=== PATIENT | male | born 1965 | race Caucasian/White ===

== ENCOUNTER 2017-05-19 13:19 | Emergency (ER) | payer OTHER ==
[~2017-05-19] VITALS: Ht 167.6 cm; Wt 97.5 kg
[2017-05-19] MEDS ORDERED: ACETAMINOPHEN 500 MG TABLET PO ONE (14:15)
[2017-05-19] MEDS ORDERED: BUPIVACAINE 0.5% 50 ML VIAL. INJ ONE (14:15)
[2017-05-19] MEDS ORDERED: DIPHTH,PERTUSS(ACELL),TET TOX 0.5 ML DISP.SYRIN. VAX IM ONE (14:15)
[2017-05-19] MEDS ORDERED: PIPERACILLIN/TAZOBACTAM 3.375 GM in IV NORMAL SALINE 50ML 50 ML IV ONE (14:30)
--- NOTE | 2017-05-19 14:37 | RAD ---
Indication: Laceration. Technique: 2 views of the left second digit including an AP view of the hand are submitted for review. No comparison is available. Findings: Soft tissue defect compatible with laceration is noted at the distal aspect of the second middle phalanx. No radiopaque foreign body is identified. An associated transverse fracture is suspected. There is no intra-articular extension. There is no dislocation. Impression: Acute traumatic transverse fracture of the distal aspect of the second middle phalanx.
[2017-05-19] MEDS ORDERED: CEPH500T PO (17:49)
[2017-05-19] MEDS ORDERED: HYDR-971 PO (17:49)
[2017-05-19 17:50] VITALS: BP 141/76
--- NOTE | 2017-05-19 17:50 | PHYS DOC ---
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 Patient is an inmate. He states he was weighing a 600 pound cow and his left index finger got caught between a pipe a scale. He is left handed Review of Systems Review of Systems Constitutional: Denies fever or chills [] Musculoskeletal: Denies back pain or joint pain [] Integument: left index finger laceration Neurologic: Denies headache, focal weakness or sensory changes [] Current Medications Current Medications Current Medications Medications (Trade) Dose Ordered Sig/Nory Start Time Stop Time Status Last Admin Dose Admin Acetaminophen (Tylenol) 500 mg 1X ONCE 05/19/17 14:15 05/19/17 14:16 DC 05/19/17 14:36 500 MG Bupivacaine HCl (Marcaine 0.5%) 50 ml 1X ONCE 05/19/17 14:15 05/19/17 14:16 DC 05/19/17 14:37 50 ML Diphtheria/ Tetanus/Acell Pertussis (Boostrix) 0.5 ml ONCE ONCE 05/19/17 14:15 05/19/17 14:16 DC 05/19/17 14:38 0.5 ML Piperacillin Sod/ Tazobactam Sod 3.375 gm/Sodium Chloride 50 ml @ 100 mls/hr 1X ONCE 05/19/17 14:30 05/19/17 14:59 DC 05/19/17 15:05 100 MLS/HR Allergies Allergies Allergies Coded Allergies Type Severity Reaction Last Updated Verified No Known Drug Allergies 05/19/17 No Physical Exam Physical Exam Constitutional: Well developed, well nourished, no acute distress, non-toxic appearance. [] Skin: Left index finger with circular laceration approximately 6 cm round at the DIP joint, . There is no obvious tendon involvement. Patient able to flex and extend the left index finger at the MIP, PIP and DIP joints. +2 left radial pulse. Cap refill <2 seconds to the left index finger. Adequate radial sensation to the index finger. Back: No tenderness, no CVA tenderness. [] Extremities: No tenderness, no cyanosis, no clubbing, ROM intact, no edema. [] Neurologic: Alert and oriented X 3, normal motor function, normal sensory function, no focal deficits noted. [] Psychologic: Affect normal, judgement normal, mood normal. [] Current Patient Data Vital Signs Vital Signs Date Time Temp Pulse Resp B/P (MAP) Pulse Ox O2 Delivery O2 Flow Rate FiO2 05/19/17 16:14 52 16 148/76 (100) 100 Room Air 05/19/17 13:30 98.1 98.1 EKG EKG [] Radiology/Procedures Radiology/Procedures Indication: Left index finger laceration Procedure: The patient was placed in the appropriate position and digital block was done to the left index finger successfully with 0.5% of bupivacaine. The finger was explored for foreign objects, none was found. The laceration was closed with 19 interrupted sutures. 4 of the sutures were done with Vicryl and 15 were done with 3.0 and 4. 0 Ethilon. The wound was covered with nonstick dressing and splinted. Neurovascular exam is intact post splinting. PROCEDURE: FINGER(S) LEFT Indication: Laceration. Technique: 2 views of the left second digit including an AP view of the hand are submitted for review. No comparison is available. Findings: Soft tissue defect compatible with laceration is noted at the distal aspect of the second middle phalanx. No radiopaque foreign body is identified. An associated transverse fracture is suspected. There is no intra-articular extension. There is no dislocation. Impression: Acute traumatic transverse fracture of the distal aspect of the second middle phalanx. DICTATED and SIGNED BY: ADARSH ROSARIO MD DATE: 05/19/17 8081 CC: KENAN TREADWELL APRN; NO PCP; NON,STAFF ~ Course & Med Decision Making Course & Med Decision Making Pertinent Labs and Imaging studies reviewed. (See chart for details) Patient is in the ED with left index finger laceration after injury. Left index finger x-rays interpreted by radiologist were noted for a traumatic transverse fracture of the distal aspect of the left index finger middle phalanyx. There is no obvious tendon involvement to this laceration. Patient has good flexion and extension to the affected finger. Tetanus was updated. Consulted with Dr. Camp's MARY [place], she stated we can close the laceration put patient on antibiotics and he needs to follow-up with their office tomorrow to be see by Dr. Kasper the hand surgeon. Patient's laceration was closed by me as noted in procedures. He was given Zosyn in the ED. Provided patient as well officers his discharge information. Discharged with cephalexin. Dragon Disclaimer Dragon Disclaimer This electronic medical record was generated, in whole or in part, using a voice recognition dictation system. Departure Departure Impression: Primary Impression: Open fracture of phalanx of index finger Disposition: HOME, SELF-CARE Condition: STABLE Referrals: NO PCP (PCP) SANIYA CAMP MD call his office tomorrow and ask for an appointment with Dr. Kasper. Patient Instructions: Finger Fracture, Laceration Care, Adult Additional Instructions: Jamil has an open fracture to the left index finger. He was put on antibiotics. He must take them as prescribed. He can take the pain medicine as needed for pain. He needs to contact the orthopedic doctor's office tomorrow ask for an appointment with the hand surgeon. Phone number is [phone].He needs to keep the laceration clean and dry. He can shower but not soak the finger. Scripts Hydrocodone/Apap 5-325 (NORCO 5-325 TABLET) 1 Each Tablet 1-2 TAB PO Q4-6HRS, #20 TAB Prov: KENAN TREADWELL APRN 05/19/17 Cephalexin (CEPHALEXIN) 500 Mg Tablet 1 TAB PO QID, #40 TAB Prov: KENAN TREADWELL APRN 05/19/17 Problem Qualifiers Primary Impression: Open fracture of phalanx of index finger Encounter type: initial encounter Phalanx: middle Fracture alignment: nondisplaced Laterality: left Qualified Codes: S62.651B - Nondisplaced fracture of middle phalanx of left index finger, initial encounter for open fracture KENAN TREADWELL APRN May 19, 2017 17:50
== END 2017-05-19 18:12 | disposition home or self-care (01) ==
LOC: EEVIPCON 13:19 → ER 13:19 → EDBD 13:19 → ER 18:12
DX: S62.621B Displaced fracture of middle phalanx of left index finger, initial encounter for open fracture (principal); E11.9 Type 2 diabetes mellitus without complications; I10 Essential (primary) hypertension; E03.9 Hypothyroidism, unspecified; W23.0XXA Caught, crushed, jammed, or pinched between moving objects, initial encounter; Y93.89 Activity, other specified; Y92.89 Other specified places as the place of occurrence of the external cause; Y99.8 Other external cause status
CPT/HCPCS: 29130; 73140; 90471; 90715; 96365; 99284; J2543; J3490